=== PATIENT | male | born 1965 | race Caucasian/White ===

== ENCOUNTER → 2017-06-14 | Outpatient (CLI) | payer OTHER ==
--- NOTE | 2017-06-14 17:48 | DIAGNOSTIC IMAGING REPORT ---
CHEST 2 VIEWS ROUTINE HISTORY: 51 years-old Male COUGH acute cough for 2 days with shortness of breath COMPARISON: None available TECHNIQUE: PA and lateral views of the chest FINDINGS: Cardiomediastinal and hilar silhouettes are within normal limits. There is no pneumothorax or pleural effusion. Linear subsegmental bibasilar opacities are noted. Bones of the chest appear grossly intact. Degenerative changes involve the shoulders and spine. Mild dextroscoliosis of the upper thoracic spine. IMPRESSION: Linear subsegmental bibasilar opacities suggest atelectasis with pneumonia thought to be less likely. The above report was generated using voice recognition software. It may contain grammatical, syntax or spelling errors. Electronically signed by: Memo Rider M.D. 06/14/2017 5:46 PM Dictated Date/Time: 06/14/2017 5:43 PM
== END | disposition home or self-care (01) ==
LOC: C.RAD 17:12
PROVIDERS: ATTEND Student in an Organized Health Care Education/Training Program
DX: R05 Cough (principal); R91.8 Other nonspecific abnormal finding of lung field